=== PATIENT | female | born 1955 | race Caucasian/White ===

== ENCOUNTER 2020-11-23 09:07 | Emergency (ER) | payer BC ==
[2020-11-23 09:12] VITALS: BP 128/82; PULSE 78; RESP 18; TEMP 97.7
[2020-11-23] MEDS ORDERED: PROPARACAINE 0.5% OPHTH DROPS 15 ML BTL LEFT EYE STA (09:18)
[2020-11-23] MEDS ORDERED: FLUORESCEIN STRIPS 1 MG STRIP LEFT EYE STA (09:18)
--- NOTE | 2020-11-23 09:44 | ED ---
General Adult HPI - General Chief complaint: Eye Problems Stated complaint: lt eye irritation Time Seen by Provider: 11/23/20 09:14 Source: patient Mode of arrival: ambulatory Limitations: no limitations - History of Present Illness Initial comments: 65-year-old female presents to the emergency room for a chief complaint of left eye irritation. Patient reports that 3 days ago she was using a chainsaw without her eye protection. She does not recall any pain or injury during this. However the next day she started to have pain and swelling of the upper eyelid. Patient states she tried to make herself cry because she thought maybe something was stuck under it about this did not help. Patient then presented to the emergency room. Patient denies fevers. Denies pain with extraocular movements. Patient denies wearing contacts.Patient has no other complaints at this time including shortness of breath, chest pain, abdominal pain, nausea or vomiting, headache, or visual changes. - Related Data Previous Rx's Medication Instructions Recorded Cephalexin [Keflex] 500 mg PO Q6HR 7 Days #28 cap 11/23/20 Erythromycin Ophth Oint [Romycin 1 applic LEFT EYE QID 7 Days #1 gm 11/23/20 Ophth Oint] Allergies Allergy/AdvReac Type Severity Reaction Status Date / Time No Known Allergies Allergy Verified 11/23/20 09:11 Review of Systems ROS Statement: Those systems with pertinent positive or pertinent negative responses have been documented in the HPI. ROS Other: All systems not noted in ROS Statement are negative. Past Medical History Past Medical History: Cancer Additional Past Medical History / Comment(s): leukemia History of Any Multi-Drug Resistant Organisms: None Reported Past Surgical History: Orthopedic Surgery, Tubal Ligation Past Psychological History: No Psychological Hx Reported Smoking Status: Never smoker Past Alcohol Use History: Occasional Past Drug Use History: None Reported General Exam Limitations: no limitations General appearance: alert, in no apparent distress Head exam: Present: atraumatic, normocephalic, normal inspection Eye exam: Present: PERRL, EOMI, periorbital swelling (Patient has some mild erythema and edema of the left upper eyelid. Palpable hordeolum of the medial aspect left upper eyelid.), periorbital tenderness. Absent: scleral icterus, conjunctival injection Course Vital Signs 11/23/20 09:10 Temperature 97.7 F Pulse Rate 78 Respiratory 18 Rate Blood Pressure 128/82 O2 Sat by Pulse 100 Oximetry Medical Decision Making - Medical Decision Making Patient has erythema and edema of the left upper eyelid with pustule palpated. Consistent with hordeolum. I did used proparacaine and fluorescein stain and patient's eye and visualized with Wood's lamp, no abrasions. The upper eyelid was flipped, I do not see any foreign body. I did irrigate the eye at patient's request. At this point symptoms are consistent with hordeolum. She was given a warm compresses. We will treat her with topical antibiotics. Given erythema and pain we will cover patient with oral antibiotics. No pain with extraocular motions or evidence of orbital cellulitis. Recommend she follow up with primary care or ophthalmology. She'll return for any worsening symptoms. Disposition Clinical Impression: Hordeolum of left upper eyelid Disposition: HOME SELF-CARE Condition: Good Instructions (If sedation given, give patient instructions): Cricket (ED) Additional Instructions: Please apply warm compresses several times daily to the left eye. Use medication as directed. Symptoms will likely take a few days to resolve. If he develops significantly worsening swelling or redness, fevers, pain with movement of the eye itself return to the emergency room. If needed, follow up with ophthalmology. Prescriptions: Cephalexin [Keflex] 500 mg PO Q6HR 7 Days #28 cap Erythromycin Ophth Oint [Romycin Ophth Oint] 1 applic LEFT EYE QID 7 Days #1 gm Is patient prescribed a controlled substance at d/c from ED?: No Referrals: Gideon Flaherty MD [Primary Care Provider] - 1-2 days Primitivo Ricketts MD [STAFF PHYSICIAN] - 1-2 days Time of Disposition: 09:41
== END 2020-11-23 09:56 | disposition home or self-care (01) ==
LOC: EC 09:07
DX: H00.014 Hordeolum externum left upper eyelid (principal); Z85.6 Personal history of leukemia
CPT/HCPCS: 99283

== ENCOUNTER 2021-01-28 09:05 | Emergency (ER) | payer MEDICARE ==
[2021-01-28 09:08] VITALS: BP 127/83; PULSE 67; RESP 18; TEMP 98.2
--- NOTE | 2021-01-28 09:52 | ED ---
Eye Problem HPI - General Chief complaint: Eye Problems Stated complaint: eye problem Time Seen by Provider: 01/28/21 09:23 Source: patient Mode of arrival: ambulatory Limitations: no limitations - History of Present Illness Initial comments: Patient is a 65-year-old female presenting to emergency Department with complaints of a stye on her right eye for the past 4 days. She has been doing warm compresses to area, she continues to have watery drainage and some irritation as well as some mild redness. She has had one of these in the past earlier this year. She denies any changes in her vision, no stiff Eye pain, no fevers or chills, no congestion. She has no rashes around the eye. - Related Data Previous Rx's Medication Instructions Recorded Cephalexin [Keflex] 500 mg PO Q6HR 7 Days #28 cap 11/23/20 Erythromycin Ophth Oint [Romycin 1 applic LEFT EYE QID 7 Days #1 gm 11/23/20 Ophth Oint] Erythromycin Ophth Oint [Romycin 1 applic RIGHT EYE QID 5 Days #1 01/28/21 Ophth Oint] tube Allergies Allergy/AdvReac Type Severity Reaction Status Date / Time No Known Allergies Allergy Verified 01/28/21 09:08 Review of Systems ROS Statement: Those systems with pertinent positive or pertinent negative responses have been documented in the HPI. ROS Other: All systems not noted in ROS Statement are negative. Past Medical History Past Medical History: Cancer Additional Past Medical History / Comment(s): leukemia History of Any Multi-Drug Resistant Organisms: None Reported Past Surgical History: Orthopedic Surgery, Tubal Ligation Past Psychological History: No Psychological Hx Reported Smoking Status: Never smoker Past Alcohol Use History: Occasional Past Drug Use History: None Reported General Exam - General Exam Comments Initial Comments: GENERAL: Patient is well-developed and well-nourished. Patient is nontoxic and in no acute distress. HEAD: Atraumatic, normocephalic. EYES: Pupils equal round and reactive to light, extraocular movements intact, sclera anicteric, conjunctiva are normal. Patient has a small stye present external upper eyelid of the right side. There is some mild surrounding erythema. No active drainage. ENT: Moist mucous membranes. NECK: Normal range of motion, supple without lymphadenopathy or JVD. LUNGS: Unlabored respirations. Breath sounds clear to auscultation bilaterally and equal. No wheezes rales or rhonchi. HEART: Regular rate and rhythm without murmurs, rubs or gallops. MUSCULOSKELETAL: Normal extremities with adequate strength and normal range of motion, no pitting or edema. No clubbing or cyanosis. NEUROLOGICAL: Patient is alert and oriented x 3. SKIN: Warm, Dry, normal turgor, no rashes or lesions noted. Limitations: no limitations Course Vital Signs 01/28/21 09:05 Temperature 98.2 F Pulse Rate 67 Respiratory 18 Rate Blood Pressure 127/83 O2 Sat by Pulse 98 Oximetry Medical Decision Making - Medical Decision Making Patient is a 65-year-old female here with a stye of her right eye over the past 4 days. She's been trying warm compresses without improvement. No fevers or chills. No active drainage from the stye. I will give her some topical antibiotic to try with as well, continue with the warm compresses. If symptoms persist without improvement, recommended follow-up with ophthalmology. I will give her referral. She is agreeable to this plan of care and is stable for discharge. Disposition Clinical Impression: Hordeolum externum right upper eyelid Disposition: HOME SELF-CARE Condition: Stable Instructions (If sedation given, give patient instructions): Cricket (ED) Additional Instructions: Please return to the Emergency Department if symptoms worsen or any other concerns. Use topical antibiotic as prescribed. Continue to use warm compresses as well. If symptoms persist without improvement, follow up with ophthalmology as discussed. Prescriptions: Erythromycin Ophth Oint [Romycin Ophth Oint] 1 applic RIGHT EYE QID 5 Days #1 tube Is patient prescribed a controlled substance at d/c from ED?: No Referrals: None,Stated [Primary Care Provider] - 1-2 days Daren Loera MD [STAFF PHYSICIAN] - 1-2 days Time of Disposition: 09:52
== END 2021-01-28 10:10 | disposition home or self-care (01) ==
LOC: EC 09:05
DX: H00.011 Hordeolum externum right upper eyelid (principal)
CPT/HCPCS: 99282

== ENCOUNTER → 2021-04-24 | Outpatient (CLI) | payer MEDICARE ==
--- NOTE | 2021-05-05 11:46 | MM ---
Reason for exam: screening (asymptomatic). Last mammogram was performed 11 months ago. History: Patient is postmenopausal and has history of other cancer at age 50. Took estrogen for 3 years. Took progesterone for 3 years. Physical Findings: A clinical breast exam by your physician is recommended on an annual basis and results should be correlated with mammographic findings. MG Screening Mammo w CAD Bilateral CC and MLO view(s) were taken. Prior study comparison: May 13, 2020, mammogram, performed at [facility]. February 22, 2017, mammogram, performed at [facility]. There are scattered fibroglandular densities. There are benign appearing round vascular calcifications bilaterally. There is no discrete abnormality. ASSESSMENT: Benign, BI-RAD 2 RECOMMENDATION: Routine screening mammogram of both breasts in 1 year.
== END | disposition home or self-care (01) ==
LOC: RADMAMWWP 10:27
PROVIDERS: ATTEND Internal Medicine Hematology & Oncology
DX: Z12.31 Encounter for screening mammogram for malignant neoplasm of breast (principal); Z78.0 Asymptomatic menopausal state
CPT/HCPCS: 77067

== ENCOUNTER → 2022-06-21 | Outpatient (CLI) | payer MEDICARE ==
--- NOTE | 2022-06-22 08:55 | MM ---
Reason for Exam: Screening (asymptomatic). Last mammogram was performed 1 year(s) and 2 month(s) ago. Patient History: Menarche at age 12. First Full-Term at age 19. Postmenopausal. Other cancer, age 50. Patient used Estrogen for 3 years. Patient used Progesterone for 3 years. Risk Values: Mary Jo 5 year model risk: 1.2%. NCI Lifetime model risk: 4.4%. Prior Study Comparison: 02/22/2017 Screening Mammogram, [facility]. 05/13/2020 Screening Mammogram, [facility]. 04/24/2021 Bilateral Screening Mammogram, [facility]. Tissue Density: There are scattered fibroglandular densities. Findings: Analyzed By CAD. There is no suspicious group of microcalcifications or new suspicious mass in either breast. Benign-appearing vascular calcifications bilaterally. Overall Assessment: Benign, BI-RAD 2 Management: Screening Mammogram of both breasts in 1 year. A clinical breast exam by your physician is recommended on an annual basis and results should be correlated with mammographic findings. Electronically signed and approved by: Jerson Stewart D.O.
== END | disposition home or self-care (01) ==
LOC: RADMAMWWP 11:00
PROVIDERS: ATTEND Internal Medicine Hematology & Oncology
DX: Z12.31 Encounter for screening mammogram for malignant neoplasm of breast (principal); Z78.0 Asymptomatic menopausal state
CPT/HCPCS: 77063; 77067

== ENCOUNTER → 2023-06-23 | Outpatient (CLI) | payer MEDICARE ==
--- NOTE | 2023-06-24 20:14 | MM ---
Reason for Exam: Screening (asymptomatic). Last screening mammogram was performed 12 month(s) ago. Patient History: Menarche at age 12. First Full-Term at age 19. Postmenopausal. Other cancer, age 50. Patient used Estrogen for 3 years. Patient used Progesterone for 3 years. Risk Values: Mary Jo 5 year model risk: 1.2%. NCI Lifetime model risk: 4.2%. Prior Study Comparison: 05/13/2020 Screening Mammogram, [facility], [place]. 04/24/2021 Bilateral Screening Mammogram, [facility]. 06/21/2022 Bilateral MG 3D screening mammo w/cad, [facility]. Tissue Density: There are scattered fibroglandular densities. Findings: Analyzed By CAD. Chronic nodularity on the right. Unchanged asymmetric density outer aspect of the left breast. There is no suspicious group of microcalcifications or new suspicious mass in either breast. Overall Assessment: Benign, BI-RAD 2 Management: Screening Mammogram of both breasts in 1 year. . Patient should continue monthly self-breast exams. A clinical breast exam by your physician is recommended on an annual basis. This exam should not preclude additional follow-up of suspicious palpable abnormalities. Note on Mary Jo scores and lifetime risk: 1. A Mary Jo score greater than 3% is considered moderate risk. If this is the case, consider specialist referral to assess eligibility for a risk reducing agent. 2. If overall lifetime risk for the development of breast cancer is 20% or higher, the patient may qualify for future screening with alternating mammogram and breast MRI. Electronically signed and approved by: Masood King M.D. Radiologist
== END | disposition home or self-care (01) ==
LOC: RADMAMWWP 11:03
PROVIDERS: ATTEND Family Medicine
DX: Z12.31 Encounter for screening mammogram for malignant neoplasm of breast (principal); Z78.0 Asymptomatic menopausal state
CPT/HCPCS: 77063; 77067

== ENCOUNTER → 2023-09-26 | Outpatient (CLI) | payer MEDICARE ==
[2023-09-26 12:09] LABS: HCT 42.3 % (34.0-46.0); HGB 13.9 gm/dL (11.4-16.0); MCH 31.5 pg (25.0-35.0); MCHC 32.8 g/dL (31.0-37.0); MCV 96.3 fL (80.0-100.0); Mean Platelet Volume 9.1; Platelet Count 173 k/uL (150-450); RDW 12.8 % (11.5-15.5); WBC 13.8 k/uL (3.8-10.6)
[2023-09-26 13:32] LABS: Lymphocytes # (M) 11.18 k/uL (1.0-4.8); Monocytes # (M) 0.41 k/uL (0-1.0); Neutrophils # (M) 2.35 k/uL (1.3-7.7); Neutrophils % (M) 17 %; Nucleated Red Blood Cells 0 /100 WBC (0-0); Total Cells Counted 200
[2023-09-26 13:34] LABS: RBC Morphology Normal
[2023-09-26 16:01] LABS: Chol/HDL Ratio 3.06 Ratio; LDL Cholesterol,Calculated 135.6 mg/dL (0.0-131.0); VLDL Calculation 15.92 mg/dL (5.00-40.00)
[2023-09-26 16:47] LABS: ALT 16 U/L (8-44); AST 23 U/L (13-35); Albumin 4.2 g/dL (3.8-4.9); Albumin/Globulin Ratio 1.91 Ratio (1.60-3.17); Alkaline Phosphatase 63 U/L (41-126); BUN/Creat Ratio 16.14 Ratio (12.00-20.00); Blood Urea Nitrogen 11.3 mg/dL (9.0-27.0); Calcium 9.3 mg/dL (8.7-10.3); Carbon Dioxide 24.3 mmol/L (21.6-31.8); Chloride 108 mmol/L (96-109); Globulin 2.2 g/dL (1.6-3.3); Glucose 95 mg/dL (70-110); Potassium 4.9 mmol/L (3.5-5.5); Sodium 143 mmol/L (135-145); Total Bilirubin 0.3 mg/dL (0.3-1.2); Total Protein 6.4 g/dL (6.2-8.2)
== END | disposition home or self-care (01) ==
LOC: LABWHC1 11:12
PROVIDERS: ATTEND Family Medicine
DX: E78.2 Mixed hyperlipidemia (principal)
CPT/HCPCS: 36415; 80053; 80061; 84443; 85025

== ENCOUNTER → 2024-07-03 | Outpatient (CLI) | payer MEDICARE ==
--- NOTE | 2024-07-03 10:37 | MM ---
Reason for Exam: Screening (asymptomatic). Last screening mammogram was performed 12 month(s) ago. Patient History: Menarche at age 12. First Full-Term at age 19. Postmenopausal. Other cancer, age 50. Patient used Estrogen for 3 years. Patient used Progesterone for 3 years. Risk Values: Mary Jo 5 year model risk: 1.2%. NCI Lifetime model risk: 4.0%. Prior Study Comparison: 04/24/2021 Bilateral Screening Mammogram, [facility]. 06/21/2022 Bilateral MG 3D screening mammo w/cad, [facility]. 06/23/2023 Bilateral MG 3D screening mammo w/cad, [facility]. Tissue Density: There are scattered areas of fibroglandular density. Findings: Analyzed By CAD. Right breast: There is no suspicious group of microcalcifications or new suspicious mass. Left breast: There is no suspicious group of microcalcifications or new suspicious mass. Overall Assessment: Negative, BI-RAD 1 Management: Screening Mammogram of both breasts in [address] [facility] will attempt to contact patient to return for supplemental views and ultrasound if indicated. Patient should continue monthly self-breast exams. A clinical breast exam by your physician is recommended on an annual basis. This exam should not preclude additional follow-up of suspicious palpable abnormalities. Note on Mary Jo scores and lifetime risk: 1. A Mary Jo score greater than 3% is considered moderate risk. If this is the case, consider specialist referral to assess eligibility for a risk reducing agent. 2. If overall lifetime risk for the development of breast cancer is 20% or higher, the patient may qualify for future screening with alternating mammogram and breast MRI. [facility], , 07/03/2024 10:34 AM. Electronically signed and approved by: Fermin Means DO
== END | disposition home or self-care (01) ==
LOC: RADMAMWWP 09:45
PROVIDERS: ATTEND Family Medicine
DX: Z12.31 Encounter for screening mammogram for malignant neoplasm of breast (principal); R92.323 Mammographic fibroglandular density, bilateral breasts; Z78.0 Asymptomatic menopausal state
CPT/HCPCS: 77063; 77067